=== PATIENT | male | born 1995 | race Caucasian/White ===

== ENCOUNTER 2016-10-13 19:22 | Emergency (ER) | payer BC ==
[~2016-10-13] VITALS: Ht 175.3 cm; Wt 109.0 kg
--- NOTE | ~2016-10-13 | CR127 ---
[facility] A Service [facility] RADIOLOGY TEXT RESULTS PATIENT: SASHA JOHNSON LOCATION: SED : [birth year] UNIT #: [id number] AGE: [address]: Mariel Wick PAC SEX: M ORDER DR: [id number] [address] [address] [id number] E MR#: [id number] Acc #: [id number] NAME: SASHA JOHNSON. : 1995 SEX: M STUDY DATE/TIME: 10/13/2016 19:54 UNIT: SED ROOM: STUDY DESCRIPTION: CR Foot Complete Min 3 View Rt Attending Physician: Mariel Wick Pa-C Ordering Physician: Mariel Wick Pa-C Primary Care Physician: Aamir Lomax M.D. MEDICAL IMAGING REPORT This report is preliminary unless electronic signature is present. EXAM 3 views right foot. DATE: 10/13/2016 HISTORY Pain and swelling on the anterior surface of the foot after dropping furniture on it today. COMPARISON None. FINDINGS No fracture. No joint dislocation. Mild degenerative change of the interphalangeal joint of the great toe. No unexpected retained radiopaque foreign body in the soft tissues. IMPRESSION No acute abnormality of the right foot. Mild degenerative change of the interphalangeal joint of the great toe. Dictated by... Jayashree Barger M.D. THIS IS AN ELECTRONICALLY VERIFIED REPORT Jayashree Barger M.D. at 10/14/2016 9:56 AM MANFRED/palmira TD: 10/14/2016 00:39 [facility] A [facility] RADIOLOGY TEXT RESULTS PATIENT: SASHA JOHNSON LOCATION: SED : [birth year] UNIT #: [id number] AGE: [address]: Mariel Wick PAC SEX: M ORDER DR: JOB #: [id number] MEDICAL IMAGING REPORT Page 1 of 1
== END 2016-10-13 20:33 | disposition home or self-care (01) ==
LOC: SED 19:22
DX: S90.31XA Contusion of right foot, initial encounter (principal); W20.8XXA Other cause of strike by thrown, projected or falling object, initial encounter; Y92.009 Unspecified place in unspecified non-institutional (private) residence as the place of occurrence of the external cause
CPT/HCPCS: 29540; 73630; 99283